=== PATIENT | male | born 1980 | race Hispanic/Latino ===

== ENCOUNTER 2025-05-01 15:58 | Emergency (ER) | payer SELFPAY ==
[2025-05-01 16:03] VITALS: BP 125/88
[2025-05-01 17:18] VITALS: BMI 29.6
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
[2025-05-01] MEDS: MOTRIN 800 MG PO (20:16)
== END 2025-05-01 21:25 | disposition home or self-care (01) ==
LOC: EMR 15:58
PROVIDERS: EMERGENCY PHYSICIAN Student in an Organized Health Care Education/Training Program
DX: R07.89 Other chest pain (principal); M54.9 Dorsalgia, unspecified; M54.2 Cervicalgia; V49.40XA Driver injured in collision with unspecified motor vehicles in traffic accident, initial encounter; Y92.410 Unspecified street and highway as the place of occurrence of the external cause; I10 Essential (primary) hypertension; E78.5 Hyperlipidemia, unspecified
CPT/HCPCS: 99283; 71046